=== PATIENT | male | born 1970 | race African-American/Black ===

== ENCOUNTER 2016-07-30 05:20 | Emergency (ER) ==
[2016-07-30] MEDS ORDERED: NAPROSYN PO ONE (05:56)
[2016-07-30 06:10] LABS: BASO% 0.2 % (0.0-0.8); EOS% 0.9 % (0.0-10.0); HEMATOCRIT 40.3 % (42.0-52.0); HEMOGLOBIN 13.1 g/dL (14.0-18.0); IMM GRAN# 0.01 X1000 (0.0-0.04); IMM GRAN% 0.1 % (0.0-0.5); LYMPH# 1.53 X1000 (1.2-3.4); LYMPH% 13.7 % (20.5-51.1); MANUAL DIFF NEEDED? YES; MCH 23.1 PG (27-31); MCHC 32.5 g/dL (33-37); MONO% 7.2 % (1.7-9.3); NEUT% 77.9 % (42.2-75.2); PLT 230 X1000 (130-400); RBC 5.68 XMIL (4.7-6.1)
[2016-07-30] MEDS ORDERED: NS 1,000 ML IV ONE (06:33)
--- NOTE | 2016-07-30 06:36 | PROVIDER DOCUMENTATION ---
HPI-General Adult - General Chief Complaint: Flu Symptoms Stated Complaint: FLU LIKE SX Time Seen by Provider: 07/30/16 06:14 Source: patient Allergies/Adverse Reactions: Patient Allergies Allergy/AdvReac Type Severity Reaction Status Date / Time iodine Allergy Severe ANAPHYLAXIS Verified 07/30/16 05:34 Home Medications: Hormone Replacement? 1 each IM DIRECTED 08/23/14 Abiraterone Acetate [Zytiga] 1 tab PO DAILY 08/26/14 - History of Present Illness -Gen Adult Nature of Presenting Problems: 46 y/o AAm with a PMHx of DM and prostate tumor presents to the ED with a one day h/o nausea, emesis, chills and sore throat. Pt reports some associated weakness, but denies any chest/abdominal pain. Reports no sick contact. Last ruination and bowle movement approximately 6 hours ago. No other issues. Review of Systems - Adult - REVIEW OF SYSTEMS - ADULT Constitutional: reports: chills, fatique. denies: fever Eyes: reports: no symptoms reported Ears, Nose, Mouth & Throat: reports: throat pain Cardiovascular: denies: chest pain, orthopnea, palpitations Respiratory: reports: cough. denies: dyspnea on exertion, excessive sputum production, shortness of breath, wheezing Gastrointestinal: reports: nausea, poor appetite, vomiting. denies: abdominal pain, constipation, difficulty swallowing Genitourinary: reports: no symptoms reported Musculoskeletal: reports: no symptoms reported Integumentary: reports: no symptoms reported Neurological: reports: no symptoms reported Psychiatric: reports: no symptoms reported Endocrine: reports: no symptoms reported Hematologic/Lymphatic: reports: no symptoms reported Allergic/Immunologic: reports: no symptoms reported Past History - Adult - PAST MEDICAL HISTORY-ADULT Review of Records: reports: Old Records Reviewed, Nursing Assessment Review, Medications Reviewed Major Childhood Illnesses: reports: denies history Cardiovascular: reports: arrhythmia Genitourinary: reports: prostate cancer Endocrine/Immune: reports: Diabetes - PRIOR SURGERIES/PROCEDURES Surgical/Procedure History: reports: orthopedic (extremity) - PRIOR HOSPITALIZATIONS Prior Hospitalizations: reports: none - IMMUNIZATION STATUS Childhood Immunizations: See Nurse Assessment Flu Vaccine: See Nurse Assessment - FAMILY HISTORY Family History: reviewed, not pertinent - SOCIAL HISTORY Smoking: denies Substance Use: none/never Alcohol Use Frequency: twice a week Number of drinks per typical drinking period:: 2 drinks Living Situation: family Physical Exam-General - CONSTITUTIONAL General Appearance: alert, mild distress. negative: slow to respond, obtunded, combative - EYES Eyes: PERRL/EOMI, pink conjunctivae, fundi clear, no AV nicking. negative: sclera injected, scleral icterus - HEAD, EARS, NOSE, MOUTH & THROAT HENMT: normocephalic/atraumatic, moist mucous membranes, normal ENT inspection. negative: pharyngeal erythema, tonsillar exudate - NECK Neck: non-tender, full range of motion, supple. negative: C-spine tenderness - RESPIRATORY Respiratory: chest non-tender, lungs clear, normal breath sounds. negative: crackles, rales, rhonchi, stridor, wheezing - CARDIOVASCULAR Cardiovascular: normal peripheral pulses, regular rate, rhythm, no murmur. negative: irregularly irregular - CHEST (BREASTS) Chest/Breast: no tenderness. negative: tenderness - GASTROINTESTINAL (ABDOMEN) Abdominal Exam: normal bowel sounds, non tender, soft. negative: distended, guarding, rigid, rebound, tenderness - GENITOURINARY Male Genitalia: deferred Rectal Exam: deferred - LYMPHATIC Lymphatic: no adenopathy - MUSCULOSKELETAL Back Exam: no CVA tenderness, no vertebral tenderness. negative: muscle spasm, swelling, vertebral tenderness Extremity: normal range of motion, non-tender, normal gait. negative: deformity , pedal edema - SKIN Integumentary: normal color, normal turgor, warm/dry. 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 negative: focal weakness, motor weakness - PSYCHIATRIC Psych/Mental Status: normal mood/affect, normal thought content, normal thought process, oriented x 3, anxious. negative: tearful Progress - PLAN OF CARE/RESULTS Progress/Plan/Lab Results: Laboratory Tests 07/30/16 07/30/16 07/30/16 05:30 05:50 05:50 WBC 11.16 H RBC 5.68 Hgb 13.1 L Hct 40.3 L MCV 71.0 L MCH 23.1 L MCHC 32.5 L RDW Std Deviation 13.3 Plt Count 230 MPV 11.0 H Immature Gran % (Auto) 0.1 Neut % (Auto) 77.9 H Lymph % (Auto) 13.7 L Nobles % (Auto) 7.2 Eos % (Auto) 0.9 Baso % (Auto) 0.2 Immature Gran # (Auto) 0.01 Neut # (Auto) 8.70 H Lymph # (Auto) 1.53 Nobles # (Auto) 0.80 H Eos # (Auto) 0.10 Baso # (Auto) 0.02 Segmented Neutrophils 74 Lymphocytes 14 L Monocytes 8 Atypical Lymphocytes 4.0 Hypochromia OCCASIONAL Polychromasia OCCASIONAL Sodium 131 L Potassium 3.7 Chloride 97 L Carbon Dioxide 22 L Anion Gap 12 BUN 11 Creatinine 0.9 Estimated GFR/1.73 m2 > 60 BUN/Creatinine Ratio 12 Glucose 261 H Calculated Osmolality 271 Calcium 8.6 L Total Bilirubin 0.30 AST 38 H ALT 43 Alkaline Phosphatase 83 Total Protein 6.9 Albumin 3.9 Globulin 3.0 Albumin/Globulin Ratio 1.0 Monoscreen Influenza A (Rapid) NEGATIVE Influenza B (Rapid) NEGATIVE Group A Strep Rapid 07/30/16 07/30/16 05:50 06:45 WBC RBC Hgb Hct MCV MCH MCHC RDW Std Deviation Plt Count MPV Immature Gran % (Auto) Neut % (Auto) Lymph % (Auto) Nobles % (Auto) Eos % (Auto) Baso % (Auto) Immature Gran # (Auto) Neut # (Auto) Lymph # (Auto) Nobles # (Auto) Eos # (Auto) Baso # (Auto) Segmented Neutrophils Lymphocytes Monocytes Atypical Lymphocytes Hypochromia Polychromasia Sodium Potassium Chloride Carbon Dioxide Anion Gap BUN Creatinine Estimated GFR/1.73 m2 BUN/Creatinine Ratio Glucose Calculated Osmolality Calcium Total Bilirubin AST ALT Alkaline Phosphatase Total Protein Albumin Globulin Albumin/Globulin Ratio Monoscreen NEGATIVE Influenza A (Rapid) Influenza B (Rapid) Group A Strep Rapid POSITIVE A Orders Category Date Time Status CHEST-PORTABLE [RAD] Stat Exams 07/30/16 06:34 Taken CBC WITH DIFF [HEME] Stat Lab 07/30/16 05:50 Completed CMP [COMPREHENSIVE METABOLIC PANEL] [CHEM] Stat Lab 07/30/16 05:[address] Stat Lab 07/30/16 06:45 Completed Flu [INFLUENZA SCREEN PL] Stat Lab 07/30/16 05:30 Completed MONO SCREEN [SERO] Stat Lab 07/30/16 05:50 Completed 0.9% Sodium Chloride Inj [Ns] 1,000 ml Med 07/30/16 06:33 Active IV 999 mls/hr CefTRIAXONE 1 GM/NS [Rocephin 1 gm/Ns] 50 ml Med 07/30/16 07:19 Active IV NOW Metoclopramide [Reglan] Med 07/30/16 06:44 Discontinued 10 mg IV NOW ONE Naproxen [Naprosyn] Med 07/30/16 05:56 Discontinued 500 mg PO NOW ONE Vital Signs - 24 hr 07/30/16 05:29 Temperature 99.9 F H Pulse Rate 101 H Respiratory 20 Rate Blood Pressure 140/88 O2 Sat by Pulse 100 Oximetry - XRAY 1 XRAY Study: Chest Impression: Normal Departure - Departure Time of Disposition Order: 07:23 DIAGNOSIS: Strep pharyngitis Hyperglycemia due to type 2 diabetes mellitus Qualifiers: Diabetes mellitus intermediate manager insulin use: unspecified detention insulin use status Qualified Code(s): E11.65 - Type 2 diabetes mellitus with hyperglycemia Disposition: HOME 01 Certified Medical Emergency: Emergent Condition: Good Additional Instructions: ED Follow Up Instructions:Pt to follow up with PCP in 3-5 days if symptoms not improved. You have been treated by a care provider in the Emergency Department. These instructions are being provided to you so you can have an understanding of how to care for yourself upon discharge. Upon discharge from the Emergency Department, you are responsible for making arrangements for follow-up care by a physician of your choice. Take all prescribed medications as directed. Return to the Emergency Department immediately for any new or worsening symptoms. You may call the Physician Referral phone number at [phone] to obtain a list of Physicians who are taking new patients. Prescriptions: Azithromycin [Zithromax Z-Jeferson] 250 mg PO DIRECTED #1 pkg Ondansetron Odt [Zofran 4 mg Odt] 4 mg PO Q6H PRN PRN #10 tablet PRN Reason: Nausea And Vomiting Referrals: Saleem Kirk MD [Primary Care Provider] -
[2016-07-30] MEDS ORDERED: REGLAN IV ONE (06:44)
[2016-07-30 06:46] LABS: LYMPHS 14 % (21-51); MONO 8 % (1-9)
[2016-07-30 06:47] LABS: HYPOCHROM OCCASIONAL; POLYCHROM OCCASIONAL
[2016-07-30 07:08] LABS: AGAP 12; ALBUMIN 3.9 g/dL (3.5-5.0); ALKALINE PHOSPHATASE 83 U/L (32-122); BUN 11 mg/dL (8-22); CALCIUM 8.6 mg/dL (8.8-10.2); CHLORIDE 97 mmol/L (98-107); COSMO 271; GOT 38 U/L (10-34); GPT 43 U/L (10-44); POTASSIUM 3.7 mmol/L (3.5-5.1); SODIUM 131 mmol/L (136-145); TCO2 22 mmol/L (25-35); TOTAL PROTEIN 6.9 g/dL (6.3-8.3)
[2016-07-30] MEDS ORDERED: ROCEPHIN 1 GM/NS 50 ML IV ONE (07:19)
[2016-07-30 08:06] VITALS: BP 101/63
--- NOTE | 2016-07-30 08:29 | Diag Imaging Result Document ---
PROCEDURE NAME: CHEST-PORTABLE - 07/30/2016 CHEST, SINGLE VIEW: COMPARISON: 06/06/2015. INDICATION: Evaluation for infection. FINDINGS: There is borderline cardiomegaly. The pulmonary vasculature is not congested. There are no acute infiltrates, effusion, or pneumothorax. There are calcified right hilar lymph nodes. IMPRESSION: No acute cardiopulmonary abnormality is identified.
== END 2016-07-30 08:28 | disposition home or self-care (01) ==
LOC: P.ED 05:20
DX: J02.0 Streptococcal pharyngitis (principal); E11.65 Type 2 diabetes mellitus with hyperglycemia; R11.2 Nausea with vomiting, unspecified; R68.83 Chills (without fever); R53.1 Weakness; R53.83 Other fatigue; Z79.899 Other long term (current) drug therapy; Z85.46 Personal history of malignant neoplasm of prostate
CPT/HCPCS: 71010; 80053; 82948; 85025; 86308; 87430; 87804; 96361; 96365; 96375; J0696; J2765; J7030